=== PATIENT | male | born 1960 | race Caucasian/White ===

== ENCOUNTER 2019-07-29 09:06 | Emergency (ER) | payer OTHER ==
[~2019-07-29] VITALS: Ht 193 cm; Wt 97.5 kg
[2019-07-29] MEDS ORDERED: KETO10 PO (11:03)
[2019-07-29] MEDS ORDERED: Robaxin-750750 MG PO (11:03)
== END 2019-07-29 11:12 | disposition home or self-care (01) ==
LOC: ER 09:06
DX: G89.29 Other chronic pain (principal); M54.5 Low back pain; I10 Essential (primary) hypertension; E11.9 Type 2 diabetes mellitus without complications; Z79.899 Other long term (current) drug therapy
CPT/HCPCS: 99283; J1885

== ENCOUNTER 2023-06-25 03:05 | Day surgery (SDC) | payer OTHER ==
[~2023-06-25 03:05] MED LIST: KETO10 PO; Robaxin-750750 MG PO
== END 2023-06-25 22:50 | disposition home or self-care (01) ==
LOC: WOUND 03:05
DX: E11.621 Type 2 diabetes mellitus with foot ulcer (principal); L97.512 Non-pressure chronic ulcer of other part of right foot with fat layer exposed; E11.40 Type 2 diabetes mellitus with diabetic neuropathy, unspecified
CPT/HCPCS: G0463

== ENCOUNTER → 2023-09-29 | Outpatient (CLI) | payer OTHER | END | disposition home or self-care (01) | LOC: LAB SHORT 12:00 → LAB 12:00 | DX: E11.9 Type 2 diabetes mellitus without complications (principal) | CPT/HCPCS: 82043 ==

== ENCOUNTER → 2025-06-26 | Outpatient (CLI) | payer OTHER | LOC: LAB SHORT 10:20 → LAB 10:20 | DX: E11.621 Type 2 diabetes mellitus with foot ulcer (principal); I10 Essential (primary) hypertension | CPT/HCPCS: 82043 ==

== ENCOUNTER → 2025-07-02 | Outpatient (CLI) | payer OTHER | LOC: LAB 13:54 → LAB SHORT 13:54 | DX: D03.60 Melanoma in situ of unspecified upper limb, including shoulder (principal) | CPT/HCPCS: 88305; 88341; 88342 ==

== ENCOUNTER → 2025-11-12 | Outpatient (CLI) | payer OTHER | LOC: LAB SHORT 12:00 → LAB 12:00 | DX: L97.512 Non-pressure chronic ulcer of other part of right foot with fat layer exposed (principal); L03.115 Cellulitis of right lower limb | CPT/HCPCS: 87070; 87077; 87147; 87186; 87205 ==